=== PATIENT | male | born 1980 | race Caucasian/White ===

== ENCOUNTER 2016-11-10 17:26 | Inpatient (IN) | payer OTHER ==
[~2016-11-10 17:26] MED LIST: HYDROmorphONE/DILAUDID 1 MG/ML SYR IVP ONE
[2016-11-10] MEDS ORDERED: ceFAZolin 2 GM/DEXTROSE 100 ML IV ONE (17:29)
[2016-11-10] MEDS ORDERED: fentaNYL 100 MCG/2 ML INJ IVP ONE ×2 (17:36→18:13)
[2016-11-10] MEDS ORDERED: KETAMINE 100 MG/10 ML SYR ONE (17:40)
[2016-11-10] MEDS ORDERED: KETAMINE 100 MG/10 ML SYR IVP ONE (17:40)
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
[2016-11-10 17:58] LABS: % IMMATURE GRANULYOCYTES 0.7 % (0.0-1.1); ABSOLUTE IMMATURE GRANULOCYTES 0.05 10^3/uL (0.00-0.10); ADD DIFF? NO; ADD MORPH? NO; ADD SCAN? NO; ATYPICAL LYMPHOCYTE FLAG 0 (0-99); FRAGMENT RBC FLAG 0 (0-99); HEMOGLOBIN 15.2 g/dL (13.7-17.5); LEFT SHIFT FLG 0 (0-99); LIPEMIA HEMOLYSIS FLAG 90 (0-99); MEAN CELL HEMOGLOBIN 33.2 pg (27.9-34.1); MEAN CELL HEMOGLOBIN CONCENTR. 36.2 g/dL (32.4-36.7); MEAN CELL VOLUME 91.7 fL (81.5-99.8); MEAN PLATELET VOLUME 8.9 fL (8.7-11.7); PLATELET CLUMPS FLAG 0 (0-99); PLATELET COUNT 366 10^3/uL (150-400); RED BLOOD CELL COUNT 4.58 10^6/uL (4.40-6.38); RED CELL DISTRIBUTION WIDTH 11.9 % (11.5-15.2)
[2016-11-10 18:03] LABS: INR 1.12 (0.83-1.16); PROTIME(PATIENT) 14.3 SEC (12.0-15.0)
[2016-11-10 18:04] LABS: ANION GAP 19 mEq/L (8-16); CALCIUM 9.2 mg/dL (8.5-10.4); CARBON DIOXIDE 16 mEq/l (22-31); CHLORIDE 109 mEq/L (97-110); GLOMERULAR FILTRATION RATE > 60; GLUCOSE 91 mg/dL (70-100); POTASSIUM 4.1 mEq/L (3.5-5.2); SODIUM 144 mEq/L (134-144)
[2016-11-10] MEDS ORDERED: HYDROmorphONE/DILAUDID 1 MG/ML SYR ONE (18:37)
[2016-11-10] MEDS ORDERED: BUPIVACAINE 0.5% 30 ML SDV ONE (18:44)
[2016-11-10] MEDS ORDERED: HYDROmorphONE/DILAUDID 1 MG/ML SYR IVP ONE (18:54)
[2016-11-10] MEDS ORDERED: PROPOFOL/EMULSION 500 MG/50 ML BOTTLE IV ONE (19:09)
[2016-11-10] MEDS ORDERED: fentaNYL 100 MCG/2 ML INJ ONE ×2 (19:10)
[2016-11-10] MEDS ORDERED: HYDROmorphONE/DILAUDID 2 MG/ML INJ ONE (19:36)
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
[2016-11-10] MEDS ORDERED: SUGAMMADEX SODIUM 200 MG/2 ML VIAL IVP ONE (20:25)
[2016-11-10] MEDS ORDERED: PHENYLEPHRINE HCL 100 MCG/ML SYR ONE (20:25)
[2016-11-10] MEDS ORDERED: NALOXONE HCL 0.4 MG/ML INJ IVP PRN ×2 (20:33→20:58)
[2016-11-10] MEDS ORDERED: HYDROmorphONE/DILAUDID 1 MG/ML SYR IVP PRN (20:38)
[2016-11-10] MEDS ORDERED: PROMETHAZINE HCL 25 MG/ML INJ IVP PRN (20:38)
[2016-11-10] MEDS ORDERED: fentaNYL 100 MCG/2 ML INJ IVP PRN (20:38)
--- NOTE | 2016-11-10 20:51 | POSTOPPROG ---
Post Op Note Date of Operation: 11/10/16 Surgeon: Anson Calle Anesthesia: GET(General Endotracheal) Pre-op Diagnosis: L open tibia fx Post-op Diagnosis: Same Procedure: CR/ex fix, I&D Inf/Abcess present in the surg proc area at time of surgery?: No EBL: 100-500
--- NOTE | 2016-11-10 20:54 | TRAUMAPN ---
Assessment/Plan: On CTA cannot follow popliteal all the way down but does appear to have flow to foot. Unsure if was compression or related to fracture or transection. Asked Dr. Aguilar to perform formal angio to see if arterial injury after x fix applied. Patient unable to sign consent because he just had surgery. Objective: Vital Signs Temp Pulse Resp BP Pulse Ox 36.7 C 120 H 18 141/107 H 99 11/10/16 19:10 11/10/16 20:18 11/10/16 20:18 11/10/16 20:18 11/10/16 20:18 11/09/16 11/10/16 11/11/16 05:59 05:59 05:59 Intake Total 1000 Balance 1000 PT 14.3 SEC (12.0-15.0) 11/10/16 17:30 INR 1.12 (0.83-1.16) 11/10/16 17:30
[2016-11-10] MEDS ORDERED: ONDANSETRON 4 MG/2 ML VIAL IVP PRN (20:58)
[2016-11-10] MEDS ORDERED: HYDROCODONE/APAP 5/325 TAB PO PRN (20:58)
[2016-11-10] MEDS ORDERED: MIDAZOLAM 2 MG/2 ML VIAL ONE (21:27)
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
--- NOTE | 2016-11-10 22:13 | POSTOPPROG ---
Post Op Note Date of Operation: 11/10/16 Surgeon: Theresa Aguilar Anesthesia: IV Sedation (FENTANYL AND VERSED) Pre-op Diagnosis: Tibial fracture Post-op Diagnosis: same Indication: cold LT foot Procedure: LLE runoff angiogram Findings: high grade dissection at pop artery with slow 1 vessel runoff to ankle Inf/Abcess present in the surg proc area at time of surgery?: No Depth: Superfical (Skin SQ) EBL: Minimal Complications: none
[2016-11-10] MEDS ORDERED: IOPAMIDOL (ISOVUE-300) 100 ML BTL ONE (22:22)
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
[2016-11-11 00:48] VITALS: O2SAT 100
[2016-11-11 00:54] VITALS: BP 147/101
[2016-11-11 00:56] VITALS: PULSE 122; RESP 18; TEMP 99.1
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
== END 2016-11-10 23:45 | disposition short-term general hospital (02) | DRG 488 ==
LOC: F2N 20:56
PROVIDERS: ADMIT Surgery; ATTEND Surgery
PROC: 0QSH35Z Reposition Left Tibia with External Fixation Device, Percutaneous Approach (ICD-10-PCS; principal; 2016-11-10 19:00)
PROC: 0SQD0ZZ Repair Left Knee Joint, Open Approach (ICD-10-PCS; principal; 2016-11-10 19:00)
DX: S82.142A Displaced bicondylar fracture of left tibia, initial encounter for closed fracture (principal); S82.402A Unspecified fracture of shaft of left fibula, initial encounter for closed fracture; S85.002A Unspecified injury of popliteal artery, left leg, initial encounter; V28.4XXA Motorcycle driver injured in noncollision transport accident in traffic accident, initial encounter; Y92.410 Unspecified street and highway as the place of occurrence of the external cause
CPT/HCPCS: 82947-QW; 96365; C1713; C1760; C1769; J1170; J1644; J2250; J2370; J2704; J3010; Q9967